=== PATIENT | female | born 1995 | race Caucasian/White ===

== ENCOUNTER → 2016-09-26 | Outpatient (REF) | LOC: WSOH 11:42 | DX: Z02.89 Encounter for other administrative examinations (principal) ==

== ENCOUNTER 2017-09-27 03:44 | Emergency (ER) | payer BC ==
[~2017-09-27] VITALS: Ht 167.6 cm; Wt 70.5 kg
[2017-09-27 03:47] VITALS: BP 128/75; TEMP 97.6
[2017-09-27 04:00] LABS: COLLECTION METHOD CLEAN CATCH
[2017-09-27] MEDS ORDERED: CLARITIN 1010 MG/TAB PO (04:02)
[2017-09-27] MEDS ORDERED: WOMEN'S DAILY1 TAB PO (04:02)
[2017-09-27] MEDS ORDERED: SKYLA13.5 MG IY (04:03)
[2017-09-27 04:19] LABS: MUCOUS Present /lpf; PH 7 (5-8); URINE APPEARANCE Cloudy; URINE BACTERIA Occasional /hpf; URINE BILIRUBIN Negative (NEGATIVE); URINE BLOOD 2+ (NEGATIVE); URINE COLOR Yellow; URINE GLUCOSE Negative (NEGATIVE); URINE KETONE Negative (NEGATIVE); URINE LEUKOCYTE ESTERASE 3+ (NEGATIVE); URINE NITRATE Negative (NEGATIVE); URINE PROTEIN(semi-quant) 2+ (NEGATIVE); URINE RBC >50 /hpf; URINE UROBILINOGEN Negative (NEGATIVE)
[2017-09-27] MEDS ORDERED: NORCO 325 MG-51 TAB PO (04:33)
[2017-09-27] MEDS ORDERED: CEPHALEXIN500 M1 PO (04:33)
[2017-09-27 04:46] VITALS: PULSE 68
[2017-09-28] MEDS ORDERED: BACTRIM DS 8001 TAB PO (14:54)
== END 2017-09-27 04:45 | disposition home or self-care (01) ==
LOC: COL.ER 03:44
PROVIDERS: Emergency Medicine
DX: N12 Tubulo-interstitial nephritis, not specified as acute or chronic (principal)